=== PATIENT | female | born 1960 | race Caucasian/White ===

== ENCOUNTER 2019-08-03 14:12 | Emergency (ER) | payer MEDICAID ==
[~2019-08-03] VITALS: Ht 165.1 cm; Wt 127.0 kg
[~2019-08-03 14:12] MED LIST: ALBU8HFA4 INH; ALPHAGAN EACHEYE; FENO145T PO; LUMIGAN EACHEYE; METH50TA3 PO; VANC1VIA IV
[2019-08-03] MEDS ORDERED: IPRATROPIUM BROMIDE 0.5 MG/2.5 ML NEBU ONE (14:49)
[2019-08-03] MEDS ORDERED: ALBUTEROL SULFATE 2.5 MG/3 ML NEBU ONE (14:49)
--- NOTE | 2019-08-03 14:54 | NUR ---
Cont HHN TX started by FIRE [employer] INST[employer]ER.
--- NOTE | 2019-08-03 14:55 | NUR ---
JAM CATH TO LT ABD ACCESSED VIA 19GA GOMEZ NEEDLE PER PROTOCOL.
[2019-08-03] MEDS ORDERED: HYDROCODONE/APAP 10-325 MG TABLET PO ONE (15:00)
[2019-08-03] MEDS ORDERED: IPRATROPIUM BROMIDE 0.5 MG/2.5 ML NEBU NEB ONE (15:00)
[2019-08-03] MEDS ORDERED: ALBUTEROL SULFATE 2.5 MG/3 ML NEBU NEB ONE (15:00)
[2019-08-03] MEDS ORDERED: HYDROCODONE/APAP 10-325 MG TABLET ONE (15:06)
[2019-08-03] MEDS ORDERED: BISA-79 PO (15:12)
[2019-08-03] MEDS ORDERED: IMAT400T PO (15:12)
[2019-08-03] MEDS ORDERED: ROSU20TA2 PO (15:12)
[2019-08-03] MEDS ORDERED: FURO20TA4 PO (15:12)
[2019-08-03] MEDS ORDERED: ONDA8TAB6 PO (15:12)
[2019-08-03] MEDS ORDERED: ALLO100T PO (15:12)
[2019-08-03 15:24] LABS: BASOPHILS % (AUTO) 0.3 % (0.0-2.0); HEMATOCRIT 43.8 % (31.2-41.9); HEMOGLOBIN 14.6 g/dL (10.9-14.3); LYMPHOCYTES # (AUTO) 2.2 K/uL (20.0-40.0); LYMPHOCYTES % (AUTO) 21.1 % (20.5-51.5); MEAN CORPUSCULAR HEMOGLOBIN 32.8 uug (24.7-32.8); MEAN CORPUSCULAR HGB CONC 33 g/dL (32.3-35.6); MEAN CORPUSCULAR VOLUME 98.3 fL (75.5-95.3); MONOCYTES # (AUTO) 0.9 K/uL (2.0-10.0); MONOCYTES % (AUTO) 8.6 % (0.0-11.0); NEUTROPHILS # (AUTO) 7.1 K/uL (1.8-8.9); PLATELET COUNT (AUTO) 185 K/uL (179-408); RED BLOOD CELL COUNT(AUTO) 4.45 MIL/uL (3.63-4.92); WHITE BLOOD COUNT (AUTO) 10.2 K/uL (3.8-11.8)
[2019-08-03 15:42] LABS: BILIRUBIN,DIRECT 0.1 mg/dL (0.0-0.2); BILIRUBIN,TOTAL 0.3 mg/dL (0.2-1.0); POTASSIUM 4.2 mmol/L (3.5-5.1); TOTAL PROTEIN, SERUM 7.1 g/dL (6.4-8.2)
[2019-08-03 15:48] LABS: CREATININE 1.2 mg/dL (0.6-1.3)
--- NOTE | 2019-08-03 15:52 | NUR ---
JAM CATH ACCESS REMOVED WITHOUT ANY DIFFICULTY PER PROTOCOL PER PT REQUEST. PT RESTING WITH NAD NOTED AT THIS TIME. PT DENIES ANY SOB OR PAIN AT THIS TIME.
--- NOTE | 2019-08-03 15:54 | NUR ---
JOE TX COMPLETED. NAD NOTED, PT AMBULATING IN ROOM WITH NO SOB NOTED. PT REQUESTED TO HAVE SPOOL WINDER AND PULSE OX REMOVED.
[2019-08-03] MEDS ORDERED: predniSONE 10 MG TABLET ONE (16:09)
[2019-08-03] MEDS ORDERED: predniSONE 20 MG TABLET ONE (16:10)
[2019-08-03] MEDS ORDERED: predniSONE 50 MG TABLET ONE (16:10)
[2019-08-03] MEDS ORDERED: predniSONE 20 MG TABLET PO ONE (16:15)
--- NOTE | 2019-08-03 16:18 | NUR ---
Patient does not wish to proceed with medical care recommended by Dr. Whitmore. Patient given information related to possible complications, up to and including , which could occur as a result of leaving the hospital at this time. Patient verbalizes understanding of risks involved due to leaving against medical advice. Patient has signed AMA form. Written and verbal after care instructions given. Patient verbalizes understanding of instructions. Stressed follow up with pmd or return to ER for worsening s/s.
== END 2019-08-03 16:19 | disposition home or self-care (01) ==
LOC: ER 14:12
DX: R05 Cough (principal); R06.02 Shortness of breath; J45.909 Unspecified asthma, uncomplicated; Z88.8 Allergy status to other drugs, medicaments and biological substances; Z88.6 Allergy status to analgesic agent; Z91.018 Allergy to other foods; Z79.899 Other long term (current) drug therapy; Z79.2 Long term (current) use of antibiotics
CPT/HCPCS: 36415; 71045; 80048; 80076; 83605; 83880; 84484; 85025; 85730; 87040 ×2; 87400; 93005; 94644; 99285; J7512 ×3; 70030-TC; A4663; J3590